=== PATIENT | female | born 1995 | race Caucasian/White ===

== ENCOUNTER 2019-12-03 11:42 | Emergency (ER) | payer BC, MEDICAID ==
[~2019-12-03] VITALS: Ht 170.2 cm; Wt 71.4 kg
[2019-12-03 14:25] VITALS: BP 103/47
== END 2019-12-03 15:25 | disposition home or self-care (01) ==
LOC: ER 11:42
DX: O9A.211 Injury, poisoning and certain other consequences of external causes complicating pregnancy, first trimester (principal); Z04.1 Encounter for examination and observation following transport accident; Z3A.13 13 weeks gestation of pregnancy
CPT/HCPCS: 99282